=== PATIENT | female | born 1950 | race Two or more races ===

== ENCOUNTER 2016-11-10 19:49 | Emergency (ER) | payer MEDICARE, MEDICAID ==
[~2016-11-10] VITALS: Ht 160 cm; Wt 99.8 kg
--- NOTE | 2016-11-10 20:23 | Emergency Room Report ---
History of Present Illness General Chief Complaint: Behavioral Complaint Source: Patient, EMS Present Illness HPI Is a 66-year-old female with a history of depression. She presents with chief complaint of overdose. She called her sister Cookie Kent who is in [place]. I confirmed this history with her sister who called here. Her sister said that patient call to say goodbye. She took about 6 pills. This include Alvin and trazodone. This occurred prior to arrival. Here patient said that she is in a lot of stress and she doesn't know if she took it to kill her self or just to get away from a problem. She is equivocal in suicidality. Denies any drug use. Denies any alcohol use. No other complaint. She has never been in a psychiatric inpatient facility before. Pt also called her sister Sydni Shipley in [place], [place] at [phone] and expressed the same thing. It was Sydni who called 911. Allergies: Coded Allergies: FLUOXETINE (Verified Allergy, Unknown, 11/10/16) Patient History Past Medical History: see triage record, old chart reviewed, psych hx, depression Past Surgical History: other Family History: none Last Menstrual Period: UKN Now: No Immunizations: other Reviewed Nursing Documentation: PMH: Agreed, PSxH: Agreed Nursing Documentation-PMH Past Medical History: No History, Except For History Of Psychiatric Problem: Yes - Depression Review of Systems ENT: Denies: sore throat Cardiovascular: Denies: chest pain, palpitations Gastrointestinal/Abdominal: Denies: diarrhea, nausea, vomiting Musculoskeletal: Denies: back problems Skin: Denies: rash Neurological: Denies: DONOVAN, seizures All Other Systems: negative except mentioned in HPI Physical Exam Vital Signs Date Time Temp Pulse Resp B/P Pulse Ox O2 Delivery O2 Flow Rate FiO2 11/10/16 19:33 98.4 80 16 112/61 97 Room Air vitals normal Sp02 EP Interpretation: reviewed, normal General Appearance: alert/responsive, no apparent distress, non-toxic Head: normocephalic, atraumatic Eyes: PERRL, EOMI ENT: oropharynx normal Neck: supple/symm/no masses Respiratory: effort normal, no rhonchi, no wheezing Cardiovascular: no murmur, gallop, rub Gastrointestinal: non-tender, no mass, non-distended, no rebound/guarding, normal bowel sounds Musculoskeletal: gait & station normal Neurologic: oriented x3, sensory intact, motor strength/tone normal Skin: no rash, normal palpation Medical Decision Making Diagnostic Impression: Primary Impression: Overdose Qualified Codes: T50.902A - Poisoning by unspecified drugs, medicaments and biological substances, intentional self-harm, initial encounter Additional Impressions: Suicidal intent Depression Qualified Codes: F32.9 - Major depressive disorder, single episode, unspecified Alcohol intoxication Qualified Codes: F10.920 - Alcohol use, unspecified with intoxication, uncomplicated ER Course She presents with questionable overdose. She is awake and has no evidence of overdose. She does have alcohol intoxication. She denies any this right now. But I did have confirmation from 2 different family member that she called. She was placed on a psychiatric hold for psychiatric evaluation. She is medically clear. labs with elevated alcohol Last Vital Signs Date Time Temp Pulse Resp B/P Pulse Ox O2 Delivery O2 Flow Rate FiO2 11/10/16 19:33 98.4 80 16 112/61 97 Room Air Status: improved Disposition: XFER TO PSYCH HOSP/UNIT Condition: Stable GITA ABBOTT M.D. Nov 10, 2016 20:23
[2016-11-10 20:35] LABS: BASOPHILS % (AUTO) 1.1 % (0.0-2.0); EOSINOPHILS % (AUTO) 2.2 % (0.0-3.0); LYMPHOCYTES % (AUTO) 37.1 % (20.0-45.0); MEAN CORPUSCULAR HEMOGLOBIN 31.8 PG (27.0-31.0); MEAN CORPUSCULAR HGB CONC 32.7 G/DL (32.0-36.0); MEAN CORPUSCULAR VOLUME 97 FL (80-99); MEAN PLATELET VOLUME 5.7 FL (6.5-10.1); MONOCYTES % (AUTO) 7.5 % (1.0-10.0); NEUTROPHILS % (AUTO) 52.1 % (45.0-75.0); PLATELET COUNT 282 K/UL (150-450); RED BLOOD COUNT 4.21 M/UL (4.20-5.40); RED CELL DISTRIBUTION WIDTH 13.7 % (11.6-14.8); WHITE BLOOD COUNT 5.6 K/UL (4.8-10.8)
[2016-11-10 20:44] LABS: APPEARANCE,URINE CLEAR; KETONES,URINE NEGATIVE (NEGATIVE); LEUKOCYTE ESTERASE ,URINE NEGATIVE (NEGATIVE); NITRITE,URINE NEGATIVE (NEGATIVE); PH,URINE 6.5 (4.5-8.0); PROTEIN,URINE NEGATIVE (NEGATIVE); UROBILINOGEN,URINE NORMAL MG/DL (0.0-1.0)
[2016-11-10 20:53] LABS: ACETAMINOPHEN < 10 ug/mL (10-30); ALANINE AMINOTRANSFERASE 16 U/L (3-33); ALBUMIN/GLOBULIN RATIO 1.3 (1.0-2.7); ALCOHOL 179 mg/dL; ANION GAP 16 (5-15); ASPARTATE AMINO TRANSFERASE 20 U/L (5-40); CALCIUM 10.1 mg/dL (8.6-10.2); CARBON DIOXIDE 26 mEQ/L (20-30); CHLORIDE 99 mEQ/L (98-107); CREATININE 0.8 mg/dL (0.5-0.9); GLOMERULAR FILTRATION RATE > 60 mL/min (>60); HEMOLYSIS 3; POTASSIUM 3.8 mEQ/L (3.4-4.9); SODIUM 141 mEQ/L (135-145); TOTAL PROTEIN 7.1 g/dL (6.6-8.7)
[2016-11-10 21:47] VITALS: BP 113/70
[2016-11-11] VITALS (8 sets, daily range): BP systolic 107–163; BP diastolic 62–79
--- NOTE | 2016-11-11 23:43 | Consultation ---
History of Present Illness General Chief Complaint: Behavioral Complaint Present Illness HPI 66 yo black female with hx of chronic knee pain, mdd, htn, obesity was bib ambulance after her sister called 911. the pt called her sister and said goodbye to end her life. during the eval the pt was on the phone with her niece. the pt stated that she never called the sister and stated that she was making it up. the pt didn't endorse suicidal ideation. she is seeing a therapist and [facility]. the prozac dose was recently change and the has mild eczema. the pt has been in arguments and fight with sisters. Allergies: Coded Allergies: FLUOXETINE (Verified Allergy, Unknown, 11/10/16) Patient History History Provided By: Patient, Medical Record, PMD Healthcare decision maker Resuscitation status Advanced Directive on File Review of Systems Constitutional: Reports: weakness Psychiatric: Reports: anxiety, depressed feelings, emotional problems, prior hx Physical Exam General Appearance: no apparent distress, alert, obese Neurologic: alert, oriented x 3, responsive Last 24 Hour Vital Signs Date Time Temp Pulse Resp B/P Pulse Ox O2 Delivery O2 Flow Rate FiO2 11/11/16 14:54 69 16 163/79 98 Room Air 11/11/16 13:39 97.9 65 16 162/78 96 Room Air 11/11/16 13:23 98.1 11/11/16 11:05 98.1 67 14 147/69 98 Room Air 11/11/16 08:15 98.0 76 18 128/78 98 Room Air 11/11/16 06:19 97.9 70 16 127/62 99 Room Air 11/11/16 04:03 98.2 81 15 107/71 100 Room Air 11/11/16 01:50 72 14 115/69 97 Room Air 11/11/16 00:00 98.0 76 17 110/74 98 Room Air Laboratory Tests Test 11/10/16 23:59 Serum Alcohol 100 mg/dL Height (Feet): 5 Height (Inches): 3.00 Weight (Pounds): 220 Assessment/Plan Status: stable Assessment/Plan mdd recurrent mild the pt is [place] at imminent dto/d[place] no [address] pt will follow up with outpt psych no Jm Blood M.D. Nov 11, 2016 23:43
--- NOTE | 2016-11-12 08:08 | Emergency Room Report ---
Physical Exam Vital Signs Date Time Temp Pulse Resp B/P Pulse Ox O2 Delivery O2 Flow Rate FiO2 11/10/16 19:33 98.4 80 16 112/61 97 Room Air Medical Decision Making Diagnostic Impression: Primary Impression: Overdose Qualified Codes: T50.904A - Poisoning by unspecified drugs, medicaments and biological substances, undetermined, initial encounter Additional Impressions: Alcohol intoxication Qualified Codes: F10.920 - Alcohol use, unspecified with intoxication, uncomplicated Depression Qualified Codes: F32.9 - Major depressive disorder, single episode, unspecified ER Course 66-year-old female who initially presented for evaluation after reported overdose. Called her sister to say goodbye. Sister called 911 Patient initially seen and evaluated by Dr Hannah. Please see his note for full history and physical During ED course patient denied any suicidal or homicidal ideation. Patient was evaluated by Dr. Weldon in the morning. Did not believe patient is a danger to herself. Patient has her medications and has good followup. believes patient be safely discharged to home at this time Diagnosis-overdose, alcoholic intoxication, depression Stable and discharged to home. Followup with psychiatry. Take medications as prescribed. Return to ED if symptoms recur or worsen Last Vital Signs Date Time Temp Pulse Resp B/P Pulse Ox O2 Delivery O2 Flow Rate FiO2 11/11/16 14:54 69 16 163/79 98 Room Air 11/11/16 13:39 97.9 Status: improved Disposition: HOME, SELF-CARE Condition: Stable Referrals: NOT CHOSEN IPA/,REFERRING (PCP) Patient Instructions: Depression, Adult, [id number] Additional Instructions: take your medications as prescribed. followup with psychiatrist WM ESPINOZA M.D. Nov 12, 2016 08:08
== END 2016-11-11 15:09 | disposition home or self-care (01) ==
LOC: EDBD 19:49 → EMR 21:46
DX: T43.212A Poisoning by selective serotonin and norepinephrine reuptake inhibitors, intentional self-harm, initial encounter (principal); T40.2X2A Poisoning by other opioids, intentional self-harm, initial encounter; Y92.019 Unspecified place in single-family (private) house as the place of occurrence of the external cause; F10.129 Alcohol abuse with intoxication, unspecified; F32.9 Major depressive disorder, single episode, unspecified
CPT/HCPCS: 36415; 80053; 80300; 81003; 85025; 99285; G0480; 80329